=== PATIENT | female | born 1970 | race Caucasian/White ===

== ENCOUNTER → 2023-08-12 18:15 | Outpatient (REF) | payer BC, SELFPAY | LOC: WDC 18:15 | PROVIDERS: ATTENDING PHYSICIAN Physician Assistant Medical | DX: Z12.31 Encounter for screening mammogram for malignant neoplasm of breast (principal) | CPT/HCPCS: 77063; 77067 ==

== ENCOUNTER → 2023-10-30 15:52 | Outpatient (REF) | payer BC, SELFPAY | LOC: RAD 15:52 | PROVIDERS: ATTENDING PHYSICIAN Obstetrics & Gynecology Gynecology; FAMILY PHYSICIAN Physician Assistant Medical | DX: T83.32XA Displacement of intrauterine contraceptive device, initial encounter (principal) | CPT/HCPCS: 76830; 76856 ==

== ENCOUNTER 2023-12-12 05:47 | Day surgery (SDC) | payer BC, SELFPAY ==
[2023-12-12] VITALS (8 sets, daily range): BP systolic 101–125; BP diastolic 55–74; BMI 29.0
[2023-12-12 08:08] LABS: HCG, Urine Qualitative Screen Negative
[2023-12-12 08:21] LABS: Glucose - Point of Care 175 mg/dl (70-99)
[2023-12-12] MEDS: NORMOSOL-R/PLASMALYTE-A 1000 IV (08:24)
[2023-12-12 10:57] LABS: Glucose - Point of Care 152 mg/dl (70-99)
== END 2023-12-12 12:20 | disposition home or self-care (01) ==
LOC: SDS 05:47
PROVIDERS: ATTENDING PHYSICIAN Obstetrics & Gynecology Gynecology
DX: Z30.432 Encounter for removal of intrauterine contraceptive device (principal)
CPT/HCPCS: 58562; 88300; 88305; 81025; 82962; 93005